=== PATIENT | male | born 1995 | race African-American/Black ===

== ENCOUNTER 2021-03-29 12:06 | Emergency (ER) | payer OTHER, SELFPAY | END 2021-03-29 12:45 | disposition home or self-care (01) | LOC: NAV ERS 12:06 | DX: M54.5 Low back pain (principal); M54.6 Pain in thoracic spine; F17.210 Nicotine dependence, cigarettes, uncomplicated; V89.2XXA Person injured in unspecified motor-vehicle accident, traffic, initial encounter | CPT/HCPCS: 99283 ==